=== PATIENT | female | born 1970 | race Caucasian/White ===

== ENCOUNTER 2017-08-17 18:07 | Emergency (ER) | payer BC ==
[~2017-08-17] VITALS: Ht 152.4 cm; Wt 50.8 kg
[2017-08-17] MEDS ORDERED: SERT50TA PO (18:33)
[2017-08-17] MEDS ORDERED: CLONAZEPAM (18:33)
[2017-08-17] MEDS ORDERED: KETOROLAC TROMETHAMINE 30 MG INJ IVP ONE (19:15)
--- NOTE | 2017-08-17 19:15 | NUR ---
REPORT RECIEVED FROM STEF HICKMAN. ASSUMING CARE AT THIS TIME.
[2017-08-17 19:24] LABS: BASOPHILS % (AUTO) 0.3 % (0.0-2.0); EOSINOPHILS % (AUTO) 0.2 % (0.0-7.0); HEMATOCRIT 37.2 % (31.2-41.9); HEMOGLOBIN 12.8 g/dL (10.9-14.3); LYMPHOCYTES # (AUTO) 0.9 K/uL (20.0-40.0); LYMPHOCYTES % (AUTO) 13.6 % (20.5-51.5); MEAN CORPUSCULAR HEMOGLOBIN 30.1 uug (24.7-32.8); MEAN CORPUSCULAR HGB CONC 35 g/dL (32.3-35.6); MEAN CORPUSCULAR VOLUME 87.4 fL (75.5-95.3); MONOCYTES # (AUTO) 0.1 K/uL (2.0-10.0); MONOCYTES % (AUTO) 2.3 % (0.0-11.0); NEUTROPHILS # (AUTO) 5.4 K/uL (1.8-8.9); NEUTROPHILS % (AUTO) 83.6 % (38.5-71.5); PLATELET COUNT (AUTO) 246 K/uL (179-408); RED BLOOD CELL COUNT(AUTO) 4.26 MIL/uL (3.63-4.92); WHITE BLOOD COUNT (AUTO) 6.4 K/uL (3.8-11.8)
[2017-08-17 19:30] LABS: CREATININE 0.7 mg/dL (0.6-1.3); POTASSIUM 3.6 mmol/L (3.5-5.1)
[2017-08-17] MEDS ORDERED: KETOROLAC TROMETHAMINE 30 MG INJ ONE (19:32)
[2017-08-17] MEDS: IV NORMAL SALINE 1000 ML BAG IV ONE ×2 (19:34→19:35)
[2017-08-17 19:35] LABS: BILIRUBIN,DIRECT 0.1 mg/dL (0.0-0.2); BILIRUBIN,TOTAL 0.3 mg/dL (0.2-1.0); TOTAL PROTEIN, SERUM 7.3 g/dL (6.4-8.2)
--- NOTE | 2017-08-17 19:35 | NUR ---
TANMAY LOYA AT BEDSIDE FOR MSE
--- NOTE | 2017-08-17 19:58 | NUR ---
PT BEING TAKEN OUT OF ROOM FOR CT. VSS. NO ACUTE DISTRESS NOTED
[2017-08-17] MEDS ORDERED: IV NORMAL SALINE 1000 ML BAG IV ONE (20:30)
[2017-08-17 20:45] LABS: *BILIRUBIN,URIN NEGATIVE (NEGATIVE); *BLOOD, URINE 2+ (NEGATIVE); *COLOR,URINE YELLOW (YELLOW); *KETONES,URINE NEGATIVE (NEGATIVE); *PROTEIN,URINE 1+ (NEGATIVE); *UROBILINOGEN,URINE 0.2 E.U./dl (NORMAL); LEUKOCYTE ESTERASE ,URINE NEGATIVE (NEGATIVE); NITRITE, URINE NEGATIVE (NEGATIVE); PH,URINE 6.5 (5.0-8.0); UGLUCOSE NEGATIVE (NEGATIVE)
--- NOTE | 2017-08-17 20:52 | NUR ---
PT REFUSED 2ND LITER OF NS. NOTIFIED
[2017-08-17 20:57] LABS: *CLARITY,URINE HAZY (CLEAR)
[2017-08-17 20:59] LABS: MUCUS,URINE MANY /LPF (0-FEW); RBC,URINE 20-50 /HPF (0-3); SQUAMOUS EPITHELIAL CELL,UR FEW /HPF (NONE SEEN); URINE AMORPHOUS PHOSPHATES MODERATE /HPF; WBC,URINE 0-3 /HPF (0-3)
[2017-08-17] MEDS ORDERED: MORPHINE SULFATE 4 MG/1 ML DISP.SYRIN IV ONE (21:15)
[2017-08-17] MEDS ORDERED: ONDANSETRON 4 MG/2 ML VIAL IV ONE (21:15)
[2017-08-17] MEDS ORDERED: MORPHINE SULFATE 4 MG/1 ML DISP.SYRIN ONE (21:29)
[2017-08-17] MEDS ORDERED: ONDANSETRON 4 MG/2 ML VIAL ONE (21:29)
--- NOTE | 2017-08-17 21:56 | NUR ---
Pt sts no change in pain with previous medication. MD notified, awaiting further orders.
[2017-08-17] MEDS ORDERED: HYDROMORPHONE 1 MG/1 ML DISP.SYRIN IV ONE (22:00)
--- NOTE | 2017-08-17 22:05 | NUR ---
Pt medicated for discomfort, will monitor for effects of medication.
[2017-08-17] MEDS ORDERED: HYDROMORPHONE 1 MG/1 ML DISP.SYRIN ONE (22:18)
--- NOTE | 2017-08-17 22:48 | NUR ---
Pt sts pain improved with medication. Pt not wanting to stay for admission. Dr. Dumont spoke with pt and pt's family at length about the risks and possible consequences of leaving AMA. Pt and pt's family verbalized understanding and no further questions asked. Pt signed informed AMA form. IV dc'd, catheter intact, drsg applied. No problems noted to site. Pt ambulated out of ER with steady gait and ride home.
[2017-08-17 23:01] VITALS: BP 135/64
== END 2017-08-17 23:02 | disposition left against medical advice (07) ==
LOC: ER 18:08
DX: K57.30 Diverticulosis of large intestine without perforation or abscess without bleeding (principal); K42.9 Umbilical hernia without obstruction or gangrene
CPT/HCPCS: 36415; 83690; 84703; 85025; A4663; J1170; J1885; J2270; J2405; J7030